=== PATIENT | female | born 1970 | race Caucasian/White ===

== ENCOUNTER 2020-04-10 10:14 | Emergency (ER) | payer OTHER ==
[~2020-04-10] VITALS: Ht 162.6 cm; Wt 81.7 kg
[~2020-04-10 10:14] MED LIST: ACETAMINOPHEN-1 EAC1 PO; AZITHROMYCIN 2250 MG PO; CHERATUSSIN AC118 ML PO; CIPRO500 MG PO; CIPROFLOXACIN500 M1 PO; DAY TIME COLD-237 ML PO; NOHOMEMEDICATIONS; NORCO 5-325 TA1 EACH PO
[2020-04-10 10:38] LABS: URINE BILIRUBIN NEGATIVE (Negative); URINE BLOOD 2+ (Negative); URINE CLARITY CLOUDY; URINE COLOR YELLOW; URINE GLUCOSE-RANDOM* NEGATIVE (Negative); URINE KETONES NEGATIVE (Negative); URINE PROTEIN (DIPSTICK) TRACE (Negative); URINE SPECIFIC GRAVITY 1.025 (1.005-1.035); URINE UROBILINOGEN 0.2 E.U./dl (0.2-1.0)
[2020-04-10 10:40] LABS: URINE LEUKOCYTES-REFLEX 2+ (Negative); URINE NITRITE-REFLEX POSITIVE (Negative)
[2020-04-10 10:52] LABS: ABSOLUTE NEUTROPHILS 4.3 thou/uL (1.4-8.2); BASOPHILS 0.3 % (0.0-2.0); EOSINOPHILS 0.8 % (0.0-3.0); HEMATOCRIT 37.3 % (37.0-47.0); HEMOGLOBIN 12.5 gm/dL (12.0-15.0); LYMPHOCYTES 10.6 % (24.0-44.0); MCH 28.7 pg (26.0-34.0); MCHC 33.4 g/dL (28.0-37.0); MCV 86.1 fL (80.0-100.0); MONOCYTES 7.9 % (1.0-8.0); PLATELET COUNT 214 thou/uL (150-400); POLYS 80.4 % (36.0-66.0); RBC 4.34 mil/uL (4.20-5.00); RDW 13.4 % (10.5-14.5); WBC 5.3 thou/uL (4.0-11.0)
[2020-04-10 10:54] LABS: CALCIUM 9.6 mg/dL (8.5-10.1); CREATININE 0.8 mg/dL (0.6-1.0); POTASSIUM 4.2 mmol/L (3.5-5.1)
[2020-04-10 10:54] LABS: BACTERIA-REFLEX >30 Many /HPF (None Seen); SQUAMOUS 0-3 Few /LPF (0-3); URINE WBC-REFLEX >25 Many /HPF (0-5)
[2020-04-10 10:55] LABS: CASTS None Seen /LPF (None Seen); CRYSTALS None Seen /LPF (None Seen); URINE RBC 0-2 Rare /HPF (0-2)
[2020-04-10 11:00] LABS: ALBUMIN 3.6 g/dL (3.4-5.0); TOTAL BILIRUBIN 0.3 mg/dL (0.2-1.0)
[2020-04-10 17:18] VITALS: BP 127/80
== END 2020-04-10 17:18 | disposition short-term general hospital (02) ==
LOC: ER 10:14
PROVIDERS: Emergency Medicine
DX: N39.0 Urinary tract infection, site not specified (principal); N13.2 Hydronephrosis with renal and ureteral calculous obstruction; Z88.1 Allergy status to other antibiotic agents; Z98.51 Tubal ligation status; Z88.2 Allergy status to sulfonamides